=== PATIENT | male | born 1940 | race Caucasian/White ===

== ENCOUNTER → 2018-02-08 12:29 | Outpatient (CLI) | payer MEDICARE, OTHER, SELFPAY ==
[2018-02-09 14:34] LABS: PSA, Free 0.63 ng/mL; PSA, Free % 26.3 % (.); PSA, Total Ultrasensitive 2.4 ng/mL (0.0-4.0)
== END ==
PROVIDERS: Family Provider Family Medicine; PCP Family Medicine
DX: R97.20 Elevated prostate specific antigen [PSA] (principal)
CPT/HCPCS: 84153; 84154

== ENCOUNTER 2021-04-02 11:27 | Emergency (ER) | payer MEDICARE, SELFPAY ==
[2021-04-02 11:27] VITALS: BP 163/90; PULSE 96; RESP 14; TEMP 36.8; O2SAT 99; BMI 25.7
--- NOTE | 2021-04-02 12:06 | EKG12_ITS ---
Test Reason : ABNORMAL EKG Blood Pressure : / mmHG Vent. Rate : 094 BPM Atrial Rate : 093 BPM P-R Int : 000 ms QRS Dur : 132 ms QT Int : 392 ms P-R-T Axes : 000 048 -01 degrees QTc Int : 490 ms Atrial fibrillation Right bundle branch block Abnormal ECG Confirmed by BONY PALENCIA, NIKI ([id number]), subeditor GUI ROSENBERG ([id number]) on 04/07/2021 8:35:23 AM Referred By: NANCY/ALEXANDRO Confirmed By:NIKI LOVETT MD
--- NOTE | 2021-04-02 12:18 | RAD_ITS ---
STUDY: X-RAY CHEST REASON FOR EXAM: Male, 80 years old. Chest pain TECHNIQUE: Single AP portable view of the chest. COMPARISON: None. FINDINGS: EKG electrodes are seen. Elevation of the right hemidiaphragm. Mild increased markings at the left lung base suggestive of linear atelectasis and/or scarring. There is no demonstrated pleural abnormality. Normal size heart. Normal mediastinum and emilia. Normal visualized pulmonary arteries. There is atherosclerotic tortuosity of the aortic arch and descending thoracic aorta. There are diffuse degenerative changes of the visualized thoracic spine. Normal visualized ribs, clavicles, and shoulders. There is no demonstrated abnormality of the visualized soft tissue structures of the upper abdomen. RAD/Chest 1 View (Portable) IMPRESSION: Elevation of the right hemidiaphragm. Mild increased markings at the left lung base. Electronically Signed: Asael Mercer MD at 12:52 EDT , Service support ,
--- NOTE | 2021-04-02 12:18 | EX.ED.DYSGE1 ---
HPI History of Present Illness Chief Complaint: Hypertension Informant: patient and spouse/S.O. Narrative Narrative: 80-year-old male presents the emergency department with abnormal EKG. He states that he went to his doctors today to follow-up on hypertension. Well listening to the heart was noted to be irregular and atrial fibrillation was confirmed on EKG. Patient states he does not feel any different than normal. He does not know his medications. No history of atrial fibrillation. No chest pain no dyspnea. No swelling. PFSH PFS Medical History Gout High cholesterol Hypertension Home Medications apixaban [Eliquis] 2.5 mg PO BID #60 tab 04/02/21 [Rx Last Taken Unknown] diltiazem HCl 240 mg PO DAILY 04/02/21 [History Last Taken Unknown] finasteride 5 mg PO DAILY 04/02/21 [History Last Taken Unknown] hydrochlorothiazide 25 mg PO DAILY 04/02/21 [History Last Taken Unknown] losartan 100 mg PO DAILY 04/02/21 [History Last Taken Unknown] simvastatin 10 mg PO DAILY 04/02/21 [History Last Taken Unknown] Allergy/AdvReac Type Severity Reaction Status Date / Time lisinopril AdvReac Other Verified 04/02/21 11:30 Social History (Updated 04/02/21 @ 12:[address] Last Toussaint DO) Smoking Status: Former smoker substance use type: does not use ROS ROS ED Constitutional Constitutional ED: Denies chills or weight loss Eyes Eyes: Denies change in vision or diplopia ENT ENT ED: Denies ear pain, rhinorrhea or sore throat Cardiovascular Cardiovascular: Denies chest pain, orthopnea, palpitations or racing heartbeat Respiratory/Chest Respiratory/Chest: Denies cough, dyspnea or orthopnea Gastrointestinal Gastrointestinal: Denies abdominal pain, diarrhea, nausea or vomiting Genitourinary Genitourinary ED: Denies dysuria, hematuria or urinary frequency Musculoskeletal Musculoskeletal: Denies arthralgias or myalgias Integumentary Denies abscess or rash Neurologic Neurologic: Denies headache(s) or weakness Psychiatric Psychiatric: Denies anxiety, depression, suicidal ideation or suicidal thoughts Endocrine Endocrinology: Denies polydipsia, polyphagia or polyuria Allergic/Immunologic Allergic/Immunologic ED: Denies mouth swelling, tongue swelling or urticaria EXAM Physical Exam Const Vital Signs: 04/02/21 11:27 04/02/21 12:12 04/02/21 13:55 Temperature 98.3 F Temperature Source Temporal Pulse Rate 96 96 Respiratory Rate 14 18 Respiratory Effort Normal Non-Labored Respiratory Pattern Normal Blood Pressure 163/90 H 162/100 H Blood Pressure Mean 114 Pulse Ox 99 99 Oxygen Delivery Method Room Air Positive well nourished and well developed General Appearance ED: well developed HEENT Reports normocephalic, head/scalp atraumatic and moist mucous membranes Eyes PERRL and EOMs intact bilaterally Neck no lymphadenopathy, supple and no JVD Resp normal respiratory effort and clear to auscultation bilaterally Cardio no murmurs Rhythm: abnormal rhythm irregularly irregular GI normal to inspection, nondistended, normoactive bowel sounds and non-tender Palpation: soft Back/Spine no CVA tenderness and normal ROM Extremity normal to inspection General Extremety ED: Negative for edema General Extremity: Negative for edema Neuro oriented x3 and CN's II-XII intact bilaterally Sensorium / Orientation: alert Motor Exam: strength 5/5 throughout Psych mental status grossly normal Mood & Affect: Negative for depressed or tearful Skin no rashes or lesions noted and no wounds MDM MDM MDM Narrative Medical decision making narrative: Patient was observed on the monitor. He has had rates between 70 and 100. Basic blood work including electrolytes magnesium TSH and troponin were negative. My interpretation of the chest x-ray is no acute process. EKG is A. fib with right bundle branch block. Case was discussed with on-call inspector floor sub assembly Dr. Khalil. We are not can make any adjustments for rate to his medications. We are going to start him on Eliquis. He is over 80 years old and he has a creatinine of 2.01. Therefore we will start him with a 2.5 mg dose. Patient will follow up with cardiology he was given return instructions notes understanding Lab Data Attestation: I reviewed the patient's lab results. Labs: Laboratory Results - last 24 hr 04/02/21 04/02/21 04/02/21 12:15 12:15 12:15 WBC 7.3 RBC 3.65 L Hgb 11.1 L Hct 34.0 L MCV 93.2 MCH 30.4 MCHC 32.6 RDW Std Deviation 45.2 H RDW Coeff of Tomas 13.3 Plt Count 221 MPV 9.2 Immature Gran % (Auto) 0.500 Neut % (Auto) 69.9 Lymph % (Auto) 15.3 L [place] % (Auto) 11.2 H Eos % (Auto) 2.6 Baso % (Auto) 0.5 Absolute Neuts (auto) 5.1 Absolute Lymphs (auto) 1.12 Nucleated RBC % 0 PT 13.4 INR 1.1 APTT 35.3 Sodium 136 Potassium 3.9 Chloride 100 Carbon Dioxide 27.0 Anion Gap 9 BUN 30 H Creatinine 2.01 H Estim Creat Clear Calc 28.82 Est GFR (MDRD) Af Amer 41 L Est GFR (MDRD) Non-Af 34 L BUN/Creatinine Ratio 14.9 Glucose 97 Calcium 9.5 Magnesium 1.9 Troponin I High Sens 18 TSH 2.14 Radiography Diagnostic Testing: Radiology Impression Chest X-Ray 04/02/21 12:18 IMPRESSION: Elevation of the right hemidiaphragm. Mild increased markings at the left lung base. Electronically Signed: Asael Mercer MD at 12:52 EDT , Service support , EKG Initial EKG: Attestation: I personally reviewed and interpreted this EKG as follows: Comments: Atrial fibrillation with right bundle branch block with a ventricular rate of 94 bpm. Discharge Plan Triage Chief Complaint: Hypertension ED Provider: Last Toussaint Dx/Rx/DC Orders Clinical Impression: Atrial fibrillation, new onset Instructions: ED AFIB Prescriptions: New Eliquis 2.5 mg tablet 2.5 mg PO BID Qty: 60 RF: 0 No Action diltiazem HCl 240 mg capsule,extended release 24hr 240 mg PO DAILY RF: 0 simvastatin 10 mg tablet 10 mg PO DAILY RF: 0 hydrochlorothiazide 25 mg tablet 25 mg PO DAILY RF: 0 losartan 100 mg tablet 100 mg PO DAILY RF: 0 finasteride 5 mg tablet 5 mg PO DAILY RF: 0 Primary Care Provider: Mo Bloom Referrals: aZne Khalil MD [STAFF PHYSICIAN] - As soon as possible Mo Bloom MD [Primary Care Provider] - Disposition Disposition: Home, Self Care
[2021-04-02 12:27] LABS: Absolute Lymphocyte Count 1.12 X10^3/uL (0.83-4.51); Absolute Neutrophil Count 5.1 X10^3/uL (2.0-7.7); Basophil# 0.04 X10^3/uL; Basophil% 0.5 % (0-1); Eosinophil# 0.19 X10^3/uL; Eosinophils% 2.6 % (0-5); Hemoglobin 11.1 g/dL (13.0-16.5); Lymphocyte # 1.12 X10^3/ul (0.83-4.51); Lymphocyte % 15.3 % (19-41); Mean Corp Hgb Conc 32.6 g/dL (32-36); Mean Corpuscular Hgb 30.4 pg (27.0-32.0); Mean Corpuscular Volume 93.2 fL (80-94); Mean Platelet Vol. 9.2 fl (6.2-12.0); Monocyte# 0.82 X10^3/uL; Monocyte% 11.2 % (0-10); NRBC Flagged by Analyzer 0 % (0-5); Neutrophil % 69.9 % (47-70); Platelet Count 221 K/mm3 (150-450); RBC Distribution Width CV 13.3 % (11.6-14.6); RBC Distribution Width SD 45.2 fl (35.1-43.9); Red Blood Count 3.65 M/mm3 (4.6-6.2); White Blood Count 7.3 K/mm3 (4.4-11.0)
[2021-04-02 12:39] LABS: International Normalized Ratio 1.1; Prothrombin Time (Protime)PT. 13.4 SECONDS (11.7-14.9)
[2021-04-02 12:40] LABS: Partial Thromboplast Time 35.3 Seconds (24.1-36.2)
[2021-04-02 12:55] LABS: Anion Gap 9 (5-15); BUN 30 mg/dL (7-18); BUN/Creat Ratio 14.9 RATIO (10-20); Calcium,Total 9.5 mg/dL (8.5-10.1); Chloride 100 mmol/L (98-107); Creatinine, Serum 2.01 mg/dL (0.70-1.30); EST Glomerular Filtration Rate 34 mL/min (>60); Est Glom Filt Rate - Afr Amer 41 mL/min (>60); Estimated Creatinine Clearance 28.82 ml/min; Glucose 97 mg/dL (74-106); Magnesium 1.9 mg/dL (1.6-2.6); Potassium 3.9 mmol/L (3.5-5.1); Sodium Level 136 mmol/L (136-145); Thyroid Stim Hormone (TSH) 2.14 uIU/mL (0.358-3.74); Troponin-I HS 18 pg/mL (3.0-78.0)
[2021-04-02 13:55] VITALS: BP 162/100; PULSE 96; RESP 18; O2SAT 99
== END 2021-04-02 14:06 | disposition home or self-care (01) ==
PROVIDERS: Emergency Provider Emergency Medicine; PCP Family Medicine
DX: I48.91 Unspecified atrial fibrillation (principal); I45.10 Unspecified right bundle-branch block; I10 Essential (primary) hypertension; E78.00 Pure hypercholesterolemia, unspecified; M10.9 Gout, unspecified; Z79.899 Other long term (current) drug therapy; Z87.891 Personal history of nicotine dependence
CPT/HCPCS: 71045; 80048; 83735; 84443; 84484; 85025; 85610; 85730; 93005; 99284; A4216

== ENCOUNTER → 2021-05-19 09:41 | Outpatient (CLI) | payer MEDICARE, SELFPAY ==
--- NOTE | 2021-05-19 09:44 | ECHOD_ITS ---
Version 2 Reason For Study: AFIB Procedure This was a 2D Doppler, Color Flow transthoracic echocardiogram. The study was technically difficult. Contrast injection was performed. Exam performed in department. Left Ventricle Normal LV size. Left ventricular systolic function is normal. The estimated ejection fraction is 55 %. There are regional wall motion abnormalities as specified. Infero-Basal: Akinetic. Right Ventricle Normal RV size. Normal systolic function. Atria The left atrium is moderately enlarged. Normal right atrium. Mitral Valve There is mild to moderate mitral annular calcification. Moderate (2+) eccentric mitral valve insufficiency. Tricuspid Valve Normal tricuspid valve. Mild to moderate (1-2+) tricuspid valve insufficiency. Pulmonary artery systolic pressure is 46 mmHg. Aortic Valve Trisinus/trileaflet aortic valve. Mild focal aortic valve calcification. Pulmonic Valve Normal pulmonic valve. Great Vessels Mildly dilated aortic root. The pulmonary artery is normal size. Normal inferior vena cava. Pericardium/Pleural No pericardial effusion. Medication 22 gauge I.V. with prn adaptor inserted into right arm. Diluted definity 3.0ml given slow IV push to enhance endocardial definition. MMode/2D Measurements & Calculations LVIDd: 4.4 cm IVSd: 1.1 cm Ao root diam: 3.9 cm LVIDs: 3.1 cm LVPWd: 1.1 cm RVDd: 3.8 cm FS: 29.5 % LAV(MOD-bp): 88.0 ml LVAd ap4: 34.0 cm2 LVAd ap2: 27.1 cm2 LAV(MOD-bp) Indexed: 46.9 ml/m2 LVLd ap4: 8.7 cm LVLd ap2: 7.6 cm LAV(MOD-sp2): 77.2 ml EDV(MOD-sp4): 108.0 ml EDV(MOD-sp2): 78.4 ml LAV(MOD-sp4): 97.4 ml EDV(sp4-el): 113.2 ml EDV(sp2-el): 81.9 ml LVAs ap4: 21.4 cm2 LVAs ap2: 19.0 cm2 LVLs ap4: 7.5 cm LVLs ap2: 7.4 cm ESV(MOD-sp4): 47.2 ml ESV(MOD-sp2): 42.7 ml ESV(sp4-el): 51.6 ml ESV(sp2-el): 41.3 ml EF(MOD-sp4): 56.3 % EF(MOD-sp2): 45.6 % EF(sp4-el): 54.4 % SV(MOD-sp4): 60.9 ml SV(MOD-sp2): 35.7 ml SV(sp4-el): 61.6 ml LA A4 area: 27.9 cm2 LA dimension(2D): 4.9 cm RA A4 area: 14.8 cm2 Doppler Measurements & Calculations MV E max adalgisa: 127.4 cm/sec Ao V2 max: 127.1 cm/sec LV V1 max: 74.1 cm/sec Ao max P.5 mmHg LV V1 max P.2 mmHg PA V2 max: 95.6 cm/sec TR max adalgisa: 321.3 cm/sec TR max P.3 mmHg ECHO/Echo Complete W/ Contrast Interpretation Summary Normal LV size. Left ventricular systolic function is normal. The estimated ejection fraction is 55 %. Infero-Basal: Akinetic. Pulmonary artery systolic pressure is 46 mmHg. There are regional wall motion abnormalities as specified. Ordering Physician: Zane Khalil Referring Physician: TORI ALEJANDRO Performed By: Mariola Fernandez, RDCS, RVT
== END ==
PROVIDERS: PCP Family Medicine; Referring Provider Internal Medicine Cardiovascular Disease; Visit Provider Internal Medicine Cardiovascular Disease
DX: R06.00 Dyspnea, unspecified (principal)
CPT/HCPCS: 93306; Q9957; A4216; C8929; J3490

== ENCOUNTER → 2021-06-13 07:07 | Outpatient (CLI) | payer MEDICARE, SELFPAY ==
--- NOTE | 2021-06-13 12:24 | STRESSREP_ITS ---
Stress Test Report Pharmacologic myocardial perfusion stress test. 81-year-old man with a history of atrial fibrillation. Stress protocol: Resting EKG demonstrates atrial fibrillation with a rate of 77 bpm right bundle branch block is noted. Resting blood pressure is 164/82 mmHg. 0.4 mg of regadenoson was infused per usual protocol followed by rapid intravenous saline flush injection continuous EKG monitoring was performed. The maximum heart rate attained was 91 bpm which was 65% of max impact at heart rate the maximum workload was 1 metabolic equivalent. At rest there were no ST or T wave changes noted to suggest abnormal flow reserve and at peak infusion nonspecific ST changes were noted with did not meet the criteria for ischemia. No clinical angina was noted Myocardial perfusion protocol.: 14.2 mCi of technetium 99m sestamibi was injected at rest. 0.4 mg of regadenoson was infused per usual protocol. At peak infusion 44.7 mCi of tech netium 99m sestamibi was injected stress images were obtained stress and rest images were reconstructed and compared in the short axis vertical long horizontal long axis. Gated images were also obtained per Perfusion SPECT analysis: Review of the stress images demonstrate normal uptake of tracer noted in all areas of the myocardium. The resting images similarly demonstrated normal uptake of tracer noted in all areas of the myocardium. No areas of reversibility are noted suggest ischemia no previous infarct is noted. Gated SPECT analysis: The gated ejection fraction is 70%. Conclusion: Normal pharmacologic myocardial perfusion stress test. Atrial fibrillation noted. Preserved ejection fraction.
== END ==
PROVIDERS: PCP Family Medicine; Referring Provider Internal Medicine Cardiovascular Disease; Visit Provider Internal Medicine Cardiovascular Disease
DX: I48.91 Unspecified atrial fibrillation (principal); R06.00 Dyspnea, unspecified
CPT/HCPCS: 78452; 93017; A9500; A4216; J2785